=== PATIENT | male | born 1995 | race Hispanic/Latino ===

== ENCOUNTER 2017-01-26 11:38 | Emergency (ER) | payer OTHER ==
[2017-01-26 12:09] VITALS: BP 103/53; PULSE 63; RESP 18; TEMP 98.3; O2SAT 100; BMI 23.7
--- NOTE | 2017-01-26 12:49 | ED PDOC ---
Arrival/HPI - General Chief Complaint: Syncope Time Seen by Provider: 01/26/17 11:53 Historian: Patient - History of Present Illness Narrative History of Present Illness (Text): 01/26/17 12:52 A 21 year old male presents to the emergency department after syncopal episode an hour ago. Patient reports he was standing outside at attention when he felt lightheaded and passed out during [place] ceremony. He regained consciousness quickly, it sounds like without any confusion. Patient passed out two weeks ago and notes felt like similar syncopal symptoms. He followed up with [facility] doctor who stated to follow up with a neurologist. He denies any alcohol or drug use. Time/Duration: 1 hour Symptom Onset: Sudden Symptom Course: Unchanged Activities at Onset: Rest Past Medical History - Provider Review Nursing Documentation Reviewed: Yes - Psychiatric Hx Substance Use: No Family/Social History - Physician Review Nursing Documentation Reviewed: Yes Family/Social History: Other (denies FH of sudden in young or any heart arrhythmias) Smoking Status: Never Smoked Hx Alcohol Use: No Hx Substance Use: No Review of Systems - Physician Review All systems were reviewed & negative as marked: Yes - Review of Systems Constitutional: absent: Fevers Respiratory: absent: SOB, Cough Cardiovascular: Syncope. absent: Chest Pain, Palpitations Musculoskeletal: absent: Neck Pain Neurological: Headache ("mild"). absent: Focal Weakness, Gait Changes Physical Exam Vital Signs Reviewed: Yes Vital Signs Temp Pulse Resp BP Pulse Ox 01/26/17 12:07 98.3 F 63 18 103/53 L 100 Appearance: Positive for: Well-Appearing, Non-Toxic, Comfortable Pain Distress: None Mental Status: Positive for: Alert and Oriented X 3 Finger Stick Blood Glucose: 120 - Systems Exam Head: Present: Atraumatic, Normocephalic. No: Contusion, Swelling, Ecchymosis, Abrasion, Laceration Pupils: Present: PERRL Extroacular Muscles: Present: EOMI Conjunctiva: Present: Normal Mouth: Present: Moist Mucous Membranes Neck: Present: Normal Range of Motion Respiratory/Chest: Present: Clear to Auscultation, Good Air Exchange. No: Respiratory Distress, Accessory Muscle Use Cardiovascular: Present: Regular Rate and Rhythm, Normal S1, S2. No: Murmurs Abdomen: Present: Normal Bowel Sounds. No: Tenderness, Distention, Peritoneal Signs Upper Extremity: No: Cyanosis, Edema Lower Extremity: No: Edema Neurological: Present: GCS=15, CN II-XII Intact, Speech Normal, Motor Func Grossly Intact, Normal Sensory Function, Normal Cerebellar Funct, Gait Normal Skin: Present: Warm, Dry, Normal Color. No: Rashes Psychiatric: Present: Alert, Oriented x 3, Normal Insight, Normal Concentration Medical Decision Making ED Course and Treatment: 01/26/17 12:50 EKG: Ordered, reviewed, and independently interpreted the EKG. Rate : 62 BPM Rhythm : NSR Interpretation : normal axis, normal intervals, benign early repolarization Reevaluation: On reevaluation the patient feels better and is in no acute distress. I have discussed the results and plan with the patient, who expresses understanding. Patient given the opportunity to ask question, all questions were answered and there is agreement with the plan to discharge the patient home. Patient is stable for discharge. Patient was instructed to follow up with physician/clinic in 1-2 days or return if symptoms persist/worsen or new concerning symptoms arise. - Lab Interpretations Lab Results: Lab Results 01/26/17 12:04: POC Glucose (mg/dL) 120 H - EKG Interpretation Interpreted by ED Physician: Yes Type: 12 lead EKG - Scribe Statement The provider has reviewed the documentation as recorded by the Orquidea Wallace Provider Scribe Attestation: All medical record entries made by the Scribe were at my direction and personally dictated by me. I have reviewed the chart and agree that the record accurately reflects my personal performance of the history, physical exam, medical decision making, and the department course for this patient. I have also personally directed, reviewed, and agree with the discharge instructions and disposition. Disposition/Present on Arrival - Present on Arrival Any Indicators Present on Arrival: No History of DVT/PE: No History of Uncontrolled Diabetes: No Urinary Catheter: No History of Decub. Ulcer: No History Surgical Site Infection Following: None - Disposition Have Diagnosis and Disposition been Completed?: Yes Diagnosis: Syncope Disposition: HOME/ ROUTINE Disposition Time: 13:04 Condition: GOOD Discharge Instructions (ExitCare): Syncope (ED) Additional Instructions: Please follow up with your primary doctor and also with the gas load dispatcher. Return to the ER for any worsening symptoms, or for any other concerns. Referrals: Raghu Salcido MD [Staff Provider] - Follow up with primary Alfonso Martin MD [Staff Provider] - Follow up with primary Forms: WORK NOTE
== END 2017-01-26 13:04 | disposition home or self-care (01) ==
LOC: ED 11:38
DX: R55 Syncope and collapse (principal)